=== PATIENT | male | born 1935 | race Caucasian/White ===

== ENCOUNTER 2017-03-05 15:00 | Inpatient (IN) | payer MEDICARE, BC ==
[~2017-03-05] VITALS: Ht 190.5 cm; Wt 77.7 kg
--- NOTE | ~2017-03-05 | CON ---
PATIENT'S NAME: TAL METZGER [facility] AGE: 81 Y [address] ROOM: [id number] [place], [place] [address] LOCATION: G3N ADMIT DATE: 03/05/2017 Consultation DISCHARGE DATE: FAMILY PHYSICIAN: Jose Abdullahi MD ATTENDING PHYSICIAN: BASSEM STEEN REFERRING PHYSICIAN: Devora MACEDO CHIEF COMPLAINT: Posterior neck pain, status post fall. HISTORY OF PRESENT ILLNESS: This is an 81-year-old male who suffered a mechanical fall after accidentally tripped while he was walking on the sidewalk on the day and he fell landing his left hand and also right head on the ground. He denies any loss of consciousness. He said it was purely a mechanical fall. He denies any chest pain, shortness of breath, palpitation, or presyncope prior to the fall. He initially went to [facility] at that time for medical attention and no imaging test was performed over there at that time, but only he got few stitches to fix his laceration and excoriate his skin laceration on the right forehead. When the patient went home few days after, the patient started to complain of posterior neck pain, which has been getting worse; therefore, the patient went back to [facility] today and imaging test on the CT cervical spine showed a nondisplaced type II odontoid fracture in the second cervical spine level. The patient was transferred here for further care. The patient was already seen by our neurosurgeon, Dr. Steen, has already put orders in, currently the patient will be managing with cervical collar and conservative care for now. We are consulted for medical management. Reviewing his medical management, the patient says that he was a former cigarette smoker, he quit about 40 years ago, but he used to smoke about 3-10 cigarettes per day for roughly 5-8 years, according to the patient. He states that occasionally he has this cough that is productive with yellow sputum on and off and he denies any worsening sputum production or any worsening cough for the last few days, but during my examination, the patient was coughing frequently. The patient denies any chest pain, any shortness of breath, or any fever or chills. But over here today, on the day of my evaluation, the patient was found to have a low-grade fever at 100.3. I reviewed the home medication. I noticed that he was prescribed cefdinir 600 mg p.o. daily for 10 days as well as prednisone 60 mg daily and then taper by 10 mg every other day until finish. However, the patient has not been taking this medication. The patient is somewhat a poor historian. While asking why he is on prednisone and antibiotics, he could not really tell me, but he said the prednisone was for his arthritis and he has been taking that on and off. He states he took a dose yesterday, but he is not really sure. He has no recollection why he was given antibiotics. When asked if he has pneumonia PATIENT'S NAME: TAL METZGER [facility] AGE: 81 Y [address] ROOM: [id number] [place], [place] [address] LOCATION: [facility] ADMIT DATE: 03/05/2017 Consultation DISCHARGE DATE: FAMILY PHYSICIAN: Jose Abdullahi MD ATTENDING PHYSICIAN: BASSEM STEEN before, he denies he has ever had pneumonia. He also denies any diagnosis of COPD also. He denies any dysuria, urinary frequency or urgency, diarrhea, abdominal pain, or any other complaints. He does complain of some poor appetite for the last few days, but he cannot really tell me if he has a decreased urine output or not. REVIEW OF SYSTEMS: As mentioned in the history of present illness. All other systems reviewed and negative except those mentioned in history of present illness. PAST MEDICAL HISTORY: According to the patient, the patient has a history of what sounds like a patent foramen ovale with prior history of ischemic stroke in the past without any neurological sequelae and this happened many years ago, osteoarthritis, he denies any other medical problems. ALLERGIES: THE PATIENT DENIES ANY ALLERGY TO ANY MEDICATION. HOME MEDICATIONS: 1. Tylenol 650-1300 mg p.o. every 4-6 hours p.r.n. for pain. 2. Aspirin 162 mg p.o. every morning. 3. Cefdinir 600 mg p.o. daily for 10 days, but the patient has not been taking this. 4. Glycopyrrolate/formoterol inhaler 2 puffs inhalation twice daily p.r.n. for shortness of breath. 5. Prednisone 60 mg 1 tablet daily then decrease by 10 mg every other day until finished. The patient did not take this medication either. Actually, the patient is not quite sure if he has been taking or not. 6. Promethazine with Codeine 6.25/10 mg in 10 mL p.o. every 4-6 hours p.r.n. for cough. SOCIAL HISTORY: The patient was a former cigarette smoker about 3-10 cigarettes per day for 5- 8 years. He quit about 40 years ago. He denies any alcohol or any illegal drug use. PAST SURGICAL HISTORY: Status post cholecystectomy, according to the patient. FAMILY HISTORY: Father and mother from old age, but he could not remember from what cause. He denies any premature coronary disease in the family. PHYSICAL EXAMINATION: PATIENT'S NAME: TAL METZGER [facility] AGE: 81 Y [address] ROOM: [address] [place] [id number] LOCATION: [facility] ADMIT DATE: 03/05/2017 Consultation DISCHARGE DATE: FAMILY PHYSICIAN: Jose Abdullahi MD ATTENDING PHYSICIAN: BASSEM STEEN VITAL SIGNS: At the time of my dictation, temperature 100.3, heart rate 90, respirations 16, blood pressure 144/79, and saturation 90% on room air. GENERAL APPEARANCE: Alert and oriented x3, in no acute distress. HEENT: Pupils equally round and reactive to light. Extraocular muscles intact. Anicteric sclerae. Nasal turbinates are normal bilaterally. Moist oral mucosa. NECK: He has a cervical collar in place. Cannot assess JVD. CARDIOVASCULAR: Regular rate and rhythm. Normal S1, S2. No murmur, no rubs, no gallops. RESPIRATORY: Clear to auscultation with decreased breath sounds diffusely. No obvious wheezing, rhonchi, rales, or crackles. ABDOMEN: Soft, nontender, nondistended, normal bowel sounds, no hepatosplenomegaly, and bowel sounds are present. No palpable mass. EXTREMITIES: He has a trace pitting edema, very mild, +1 in bilateral lower extremities anterior calves. No ulcer, no rash, no cyanosis on the extremities. SKIN: No ulcer, no rash, no cyanosis. MUSCULOSKELETAL: No joint pain. No muscle pain. Range of motion intact. Neck not examined given that he has a cervical collar in place. NEUROLOGICAL: Grossly nonfocal. LABORATORY DATA: White blood cell 15.1, hemoglobin 16.1, hematocrit 49.8, MCV 95, platelet 234, glucose 116, BUN 27, and creatinine 1.7. Sodium 141, potassium 4.3, chloride 105, CO2 30, calcium 9.1, total protein 6.8, albumin 3.5, AST 27, ALT 20, alkaline phosphatase 82, total bilirubin 1.1, anion gap 10.3, globulin 3.3, GFR 39, INR 1.05, PTT 29. Urinalysis 25 leukocyte, pending bacteria, pending white blood cells, and negative nitrite. IMAGING STUDIES: 1. Chest x-ray on admission was read as no evidence of acute cardiopulmonary process. 2. Cervical spine CT from the outside facility show type II C2 odontoid fracture nondisplaced. This is per the medical records. I do not have access to the official written report of the CT cervical spine. ASSESSMENT AND PLAN: 1. Regarding his cervical type II odontoid nondisplaced fracture, status post mechanical fall: Per Neurosurgery. We will have a cervical collar in place. For now, will be conservative care. Further plan per Neurosurgery team. Pain control per Neurosurgery team. 2. Regarding his low-grade fever and productive cough in the setting of mild chronic obstructive pulmonary disease exacerbation: We will put the patient on oxygen nasal cannula to keep the saturation above 90%. The patient has history of former cigarette smoking most likely perhaps PATIENT'S NAME: TAL METZGER [facility] AGE: 81 Y [address] ROOM: [place] [address] LOCATION: [facility] ADMIT DATE: 03/05/2017 Consultation DISCHARGE DATE: FAMILY PHYSICIAN: Jose Abdullahi MD ATTENDING PHYSICIAN: BASSEM STEEN the patient could carry a diagnosis of chronic obstructive pulmonary disease. He states that he chronically has cough and is productive on and off, but he denies any worsening cough recently. But during my examination, the patient has been coughing very frequently. I will get a sputum culture, Gram stain, check a urinalysis and also urine antigen for Legionella and pneumococcal and get a urine culture, and also get blood culture 2 sets. This is the workup for the fever. For now, I will focus on the lung even though x-ray looks clean, but the patient has been coughing very frequently on my examination, I am going to treat him for chronic obstructive pulmonary disease exacerbation; and for now, I will cover him with p.o. Levaquin. This is a part of the protocol for the chronic obstructive pulmonary disease exacerbation. This is a good medication for urinary tract infection and also good for the community- acquired pneumonia in the setting of a chronic obstructive pulmonary disease exacerbation. I will also check a lactic acid and procalcitonin to make sure he is not septic. He does have leukocytosis, this could be from the pain or could be from the infection in the setting of low-grade fever. I will give incentive spirometry to use 10 times per hour while awake and treat him with nebulization with Xopenex plus Atrovent q.6 h. while awake for 24 hours and then titrate by RT and also Xopenex q.2 h. p.r.n. by RT for shortness of breath or wheezing. For now, I will not do steroids because the lungs are clear. He was given antibiotics with cefdinir and also prednisone, but the patient has never been taking that, and he cannot really tell me why he was taking this medication or even prescribed for. He said the prednisone was for his osteoarthritis. He is not really sure if he actually took it or not. Seems to me, this is the regimen for chronic obstructive pulmonary disease management. For now, I will focus on the lungs. He could have viral bronchitis as well. I will be checking influenza nasal antigen swap, if it is positive for influenza, start him on the Tamiflu dosing per pharmacy for renally dosed. Further plan depends on clinical course. 3. Regarding his acute kidney disease: This is acute kidney injury or could be chronic kidney disease. We do not have any baseline to compare. Given that the patient does have decreased oral intake and he looks dry on examination, probably, this is acute kidney injury. In either case, I am going to hydrate him with intravenous fluids and then check renal panel again in the morning. The patient can urinate therefore I am not going to place a Corey for now. Strict in's and out's. 4. Regarding his prior history of stroke in the setting of patent foramen ovale, according to the patient: The patient currently is stable and is not having any stroke symptoms. No active issue. Just now, the patient is slightly tachycardic, heart rate in the 110, I will be getting an EKG to make sure this is sinus and not atrial fibrillation. If necessary, echo could be ordered if he has murmur to rule out bacterial endocarditis, but currently there is no murmur, and I will not order echo PATIENT'S NAME: TAL METZGER [facility] AGE: 81 Y [address] ROOM: [place] [address] LOCATION: [facility] ADMIT DATE: 03/05/2017 Consultation DISCHARGE DATE: FAMILY PHYSICIAN: Jose Abdullahi MD ATTENDING PHYSICIAN: BASSEM STEEN because it is not necessary at the moment. Unless blood culture comes back positive, then echo could be ordered. 5. Regarding his deep vein thrombosis prophylaxis: Per Orthopedic Surgery. He has a compression devices in place for now. Time spent on the day of consultation was 45 minutes including chart review, interviewing and examining the patient, addressing all the questions and concerns that the patient had, and going over the plan of care with the patient and nurses. Further plan depends on clinical course and medical provider who will be taking over the care on 03/06/17 at 8 AM when shift changes. PRAVEENA GREEN MD CC/beel /[id number] d: 03/06/17 0154 t: 03/24/17 2323, CONSULTATION REPORT
--- NOTE | ~2017-03-05 | HP ---
PATIENT'S NAME: TAL METZGER [facility] AGE: 81 Y [address] ROOM: [place] [address] LOCATION: [facility] ADMIT DATE: 03/05/2017 History & Physical DISCHARGE DATE: FAMILY PHYSICIAN: Jose Abdullahi MD ATTENDING PHYSICIAN: BASSEM CRUZ DATE OF SERVICE: 03/05/2017 CHIEF COMPLAINT: Posterior neck pain, type 2 odontoid fracture, COPD exacerbation, pneumonia. HISTORY OF PRESENT ILLNESS: The patient is an 81-year-old male patient who had a fall from a standing position about 10 days ago and was assessed at [facility] regarding posterior neck pain. He was investigated with a cervical spine CT scan, and that revealed evidence of type 2 odontoid fracture. I was contacted and personally reviewed the patient's images. I recommended transferring the patient over for further investigations. I met the patient in the presence of his daughter on the linder. They confirmed the history. There was no loss of consciousness after the fall. The patient was seen in the clinic on the day of fall, lacerations were repaired, and the patient was discharged home. The patient then continued to have posterior neck pain, especially in the suboccipital region. He had no weakness/numbness in his extremities. At the time of the encounter, the patient reported mild- to-moderate neck pain. He denied numbness in his hands. He denied weakness in his hands. He denied chest pain, abdominal pain, or back pain. PAST MEDICAL AND SURGICAL HISTORY: The patient has COPD, osteoarthritis, and history of ischemic stroke. REVIEW OF SYSTEMS: All points review of systems were asked about. Pertinent positives were mentioned in the HPI. ALLERGIES: NO KNOWN DRUG ALLERGIES. MEDICATIONS: Listed in the patient's chart. SOCIAL HISTORY: The patient is an ex-smoker, he quit 40 years ago. No alcohol consumption. FAMILY HISTORY: PATIENT'S NAME: [facility] AGE: 81 Y [address] ROOM: [place] [address] LOCATION: [facility] ADMIT DATE: 03/05/2017 History & Physical DISCHARGE DATE: FAMILY PHYSICIAN: Jose Abdullahi MD ATTENDING PHYSICIAN: BASSEM CRUZ Noncontributory to the patient's presentation. PHYSICAL EXAMINATION: GENERAL: The patient was cooperative and pleasant during the examination. VITAL SIGNS: The patient had a low-grade fever. His blood pressure was stable. HEAD: I noticed abrasions on the forehead from the fall. The pupils were equal and reactive. The sclerae examination was normal. NECK: It was immobilized in rigid collar. No palpable masses. Neck range of motion was not tested. RESPIRATORY: The patient was in [id number] respiratory distress. He had multiple episodes of coughing during the encounter. CARDIOVASCULAR: He had palpable pulses in the upper extremities. MUSCULOSKELETAL: He had painful range of motion of the right shoulder. GAIT: Not done. BACK: Not done. CHEST: No tenderness to palpation. ABDOMEN: It was soft and nontender. MOUTH AND THROAT: No mucosal lesions. NEUROLOGIC: He was alert and oriented. Cranial nerves examination was grossly normal. Motor and sensory examination in the upper and lower extremities did not show any focal weakness. David sign was negative. INVESTIGATIONS: Cervical spine CT scan done on March 05, 2017, which I personally reviewed. It showed evidence of nondisplaced type 2 odontoid fracture. It showed evidence of significant cervicothoracic kyphosis. It also showed evidence of multilevel degenerative joint disease and facet arthropathy. The spinal canal is patent at all levels. IMPRESSION: This 81-year-old male patient has type 2 odontoid fracture from a fall that he had about 10 days ago. The patient is neurologically intact. The patient also has pneumonia and chronic obstructive pulmonary disease exacerbation. The patient's neurological examination is reassuring. PLAN: 1. Admission to the hospital. 2. Hospitalist consultation for medical management of COPD exacerbation and pneumonia. 3. [place] collar immobilization of the neck. 4. Upright cervical spine x-ray. 5. Physiotherapy, occupational therapy to mobilize. I reviewed the imaging with the patient and his family. I clearly indicated that the CT scan did show evidence of type 2 odontoid fracture. I then discussed the treatment options. Given that the fracture is nondisplaced, I PATIENT'S NAME: TAL METZGER [facility] AGE: 81 Y [address] ROOM: [address] [address] LOCATION: [facility] ADMIT DATE: 03/05/2017 History & Physical DISCHARGE DATE: FAMILY PHYSICIAN: Jose Abdullahi MD ATTENDING PHYSICIAN: BASSEM CRUZ recommended nonoperative treatment for now. I recommended [place] collar immobilization. The patient will be mobilized by physiotherapy and occupational therapy, and upright cervical spine x-ray will be obtained later. If the x-ray does not show any displacement or change in the angulation at C2, then the patient will be discharged home and will be followed in the office. I also discussed the surgical option. I clearly indicated that given the patient's comorbidities and age, surgery is associated with high risk of morbidity and even mortality. The patient and his family asked appropriate questions, and those were answered to their satisfaction. It was a pleasure taking care of this patient, and thank you for having us involved. BASSEM CRUZ MD AB/modl /[id number] CC: Jose Abdullahi MD D: [id number] T: [id number] HISTORY & PHYSICAL
--- NOTE | ~2017-03-05 | DS ---
PATIENT'S NAME: TAL METZGER [facility] AGE: 81 Y [address] ROOM: [address] [place], [place] [address] LOCATION: G3N ADMIT DATE: 03/05/2017 Discharge Summary DISCHARGE DATE: 03/07/2017 FAMILY PHYSICIAN: Jose Abdullahi MD ATTENDING PHYSICIAN: Ibrahima Steen ADMISSION MAIN DIAGNOSES: 1. Type 2 odontoid fracture. 2. Chronic obstructive pulmonary disease exacerbation, pneumonia. DISCHARGE MAIN DIAGNOSES: 1. Type 2 odontoid fracture. 2. Chronic obstructive pulmonary disease exacerbation, pneumonia. PROCEDURES DURING ADMISSION: None. COMPLICATIONS: None. DISCHARGE INSTRUCTIONS AND FOLLOWUP APPOINTMENTS: 1. Family physician on March 10, 2017, for COPD assessment. 2. Myself on March 13, 2017, with upright cervical spine x-ray. 3. [place] collar 01/06. 4. No heavy lifting, no neck twisting. 5. Call my office for any concerns. MEDICATIONS ON DISCHARGE: 1. Diltiazem 30 mg p.o. b.i.d. 2. Levaquin 750 mg p.o. every 2 days. 3. Prednisone 20 mg p.o. once daily for 3 days, then 10 mg p.o. once daily for 3 days, then 5 mg p.o. once daily for 3 days, then stop. 4. Promethazine and codeine 6.25/10 mg, 10 mL p.o. every 4 to 6 hours p.r.n. 5. Glycopyrrolate/formoterol inhaler 2 puffs twice daily p.r.n. 6. Tylenol 325 to 650 mg p.o. every 4 hours p.r.n. 7. Aspirin 162 mg p.o. once daily. HOSPITAL COURSE: The above patient was admitted to the hospital with main diagnosis of type 2 odontoid fracture and COPD exacerbation associated with pneumonia. The patient had a fall from a standing position about 10 days prior to the admission. He was complaining of moderate posterior neck pain. He was assessed on the day of admission at [facility] and a noncontrast CT of the head showed evidence of nondisplaced type 2 odontoid fracture. He was transferred over for further investigations. The patient was neurologically intact. The fracture was treated conservatively in [place] collar. Standing cervical spine x-ray did not show any displacement. The patient's neck pain was fairly controlled. He was seen by the hospitalist for PATIENT'S NAME: TAL METZGER [facility] AGE: 81 Y [address] ROOM: [address] [place], [place] [address] LOCATION: [facility] ADMIT DATE: 03/05/2017 Discharge Summary DISCHARGE DATE: 03/07/2017 FAMILY PHYSICIAN: Jose Abdullahi MD ATTENDING PHYSICIAN: Ibrahima Steen COPD exacerbation, management, and pneumonia. His medications were adjusted and he was continued on prednisone and started on Levaquin. His COPD significantly improved. On the day of discharge, he was examined. He continued to do well. He had no pain. He was neurologically intact. His respiratory status was better. I discussed the discharge instructions with him and based on that, the patient was sent home. MD GIGI HENDRICKS/modl /[id number] CC: Jose Abdullahi MD d: 03/08/17 0256 t: 03/08/17 0849, DISCHARGE SUMMARY
--- NOTE | 2017-03-05 17:19 | NUR ---
pt admitted for odontoid fracture. fell on thursday and is having a lot of neck pain. sent here from [facility] [place] to be evauated by dr barkley.
[2017-03-05] MEDS ORDERED: TYLENOL ARTHRI650 MG PO (17:33)
[2017-03-05] MEDS ORDERED: BEVESPI AEROS10.7 GM INH (17:35)
[2017-03-05] MEDS ORDERED: PROMETH-CODEIN 65 ML PO (17:36)
[2017-03-05] MEDS ORDERED: ASPIRIN LO-DOSE81 MG PO (17:36)
[2017-03-05] MEDS ORDERED: OMNICEF 300MG300 MG PO (17:37)
[2017-03-05] MEDS ORDERED: DELTASONE20 MG PO (17:39)
[2017-03-05 18:26] LABS: BASOPHIL # 0.1 K/uL (0.0-0.2); BASOPHIL % 0.3 %; EOSINOPHIL # 0.3 K/uL (0.0-0.5); EOSINOPHIL % 1.9 %; HEMATOCRIT 49.8 % (33.0-50.0); HEMOGLOBIN 16.1 g/dL (11.0-16.0); IMMATURE GRANULOCYTE # 0.1 K/uL (0.0-0.3); IMMATURE GRANULOCYTE % 0.5 %; LYMPHOCYTE # 1.8 K/uL (0.8-4.0); LYMPHOCYTE % 11.9 %; MCH 30.7 pg (27.0-34.0); MCHC 32.3 gm/dL (32.0-36.5); MONOCYTE # 1.5 K/uL (0.0-1.0); MONOCYTE % 9.8 %; MPV 10.9 fl (9.4-12.4); NEUTROPHIL # (ANC) 11.4 K/uL (1.4-9.0); NEUTROPHIL % 75.6 %; NRBC % 0 /100WBC (0-0.00); PLATELET COUNT 224 K/uL (150-450); RBC 5.24 M/uL (3.50-5.50); RDW-CV 14.1 % (11.9-14.6); WBC 15.1 K/uL (4.0-11.0)
[2017-03-05 18:34] LABS: INR - (THERAPEUTIC) 1.05 (0.92-1.07); PTT 29 SECONDS (25-32)
[2017-03-05 18:42] LABS: ALBUMIN 3.5 gm/dL (3.5-5.0); ANION GAP 10.3 (10.0-19.0); CALCIUM 9.1 mg/dL (8.5-10.5); CREATININE 1.7 mg/dL (0.6-1.3); POTASSIUM 4.3 mMol/L (3.7-5.1); TOTAL BILIRUBIN 1.1 mg/dL (0.0-1.5); TOTAL PROTEIN 6.8 g/dL (6.0-8.4)
[2017-03-06 00:01] LABS: BILIRUBIN URINE NEGATIVE (NEGATIVE); BLOOD URINE NEGATIVE /UL (NEGATIVE); COLOR URINE AMBER (YELLOW); GLUCOSE URINE NEGATIVE (NEGATIVE); KETONE URINE 5 mg/dL (NEGATIVE); LEUKOCYTES URINE 25 /UL (NEGATIVE); NITRITE URINE NEGATIVE (NEGATIVE); PROTEIN URINE NEGATIVE (NEGATIVE); TURBIDITY URINE CLEAR (CLEAR); UROBILINOGEN URINE 1 mg/dL (NORMAL)
[2017-03-06 00:12] LABS: BACTERIA URINE FEW (NEGATIVE); EPITHELIAL URINE NEGATIVE #/HPF (NEGATIVE); RBC URINE NEGATIVE #/HPF (NEGATIVE); RENAL EPITH URINE 0-2 #/HPF (NEGATIVE)
--- NOTE | 2017-03-06 07:40 | NUR ---
Significant Event: [place] collar neck brace on at all times. CSM WNL. 1 assist with transfer. Voids small amounts at a time. Temperature at the beginning of the shift was 100.3 and came down as low as 99.4. Sent sputum culture. Negative for influenza. Blood cultures x2. On room air. Had a constant cough. Follow up:
[2017-03-06 08:09] LABS: BASOPHIL # 0.1 K/uL (0.0-0.2); BASOPHIL % 0.3 %; EOSINOPHIL # 0.1 K/uL (0.0-0.5); EOSINOPHIL % 0.5 %; HEMATOCRIT 50.4 % (33.0-50.0); HEMOGLOBIN 16.5 g/dL (11.0-16.0); IMMATURE GRANULOCYTE # 0.2 K/uL (0.0-0.3); IMMATURE GRANULOCYTE % 0.6 %; LYMPHOCYTE # 2.1 K/uL (0.8-4.0); LYMPHOCYTE % 8.5 %; MCH 30.8 pg (27.0-34.0); MCHC 32.7 gm/dL (32.0-36.5); MPV 10.6 fl (9.4-12.4); NEUTROPHIL % 82.1 %; NRBC % 0 /100WBC (0-0.00); PLATELET COUNT 222 K/uL (150-450); RBC 5.36 M/uL (3.50-5.50); RDW-CV 14.1 % (11.9-14.6)
[2017-03-06 08:11] LABS: WBC 24.4 K/uL (4.0-11.0)
--- NOTE | 2017-03-06 08:25 | NUR ---
Introduced self/role to patient. Lives in [place]. He denied any needs for DME. States his daughter Angy will be around to assist him. He had no concerns about going home. Daughter will be here around noon today. Wrote my name on his marker board, will continue to follow.
[2017-03-06 08:27] LABS: ANION GAP 13.1 (10.0-19.0); CREATININE 1.6 mg/dL (0.6-1.3); POTASSIUM 4.1 mMol/L (3.7-5.1)
--- NOTE | 2017-03-06 17:01 | NUR ---
Significant Event: Pt is a/o. cooperative with cares. Has amb in meza with SBA. Voids in BR and urinal. [place] collar on @ all times. Has occas. harsh NPC cough. Room air sats run 91-93%. Needs assist with ordering meals. Poss discharge tomorrow. Temp max 99.8 CSM WNL. Follow up:
--- NOTE | 2017-03-07 05:01 | NUR ---
Significant Event: A/O X 3. VESTA COLLAR ON AT ALL TIMES. HAS SAT UP IN RECLINER CHAIR, AMBULATED TO BR VOIDS AND ALSO USES URINAL. HAS OCCASIONAL HARSH COUGH, NON-PRODUCTIVE. SATS ROOMAIR AT 91%-93%. NEEDS ASSISTANCE WITH ORDERING MEALS. TEMP MAX 99.8. AT 2300 TEMP 98.7 AT 0300 98.0. POSSIBLE HOME TODAY. ENCOURGE INCENTIVE USAGE. Follow up:
[2017-03-07 05:25] LABS: BASOPHIL % 0.2 %; HEMATOCRIT 46.6 % (33.0-50.0); HEMOGLOBIN 15.5 g/dL (11.0-16.0); IMMATURE GRANULOCYTE # 0.2 K/uL (0.0-0.3); IMMATURE GRANULOCYTE % 0.7 %; LYMPHOCYTE # 0.9 K/uL (0.8-4.0); LYMPHOCYTE % 4.3 %; MCH 30.9 pg (27.0-34.0); MCHC 33.3 gm/dL (32.0-36.5); MCV 92.8 fl (83.0-98.0); MONOCYTE # 0.4 K/uL (0.0-1.0); NEUTROPHIL # (ANC) 18.8 K/uL (1.4-9.0); NEUTROPHIL % 92.8 %; NRBC % 0 /100WBC (0-0.00); PLATELET COUNT 250 K/uL (150-450); RBC 5.02 M/uL (3.50-5.50)
[2017-03-07 05:27] LABS: WBC 20.2 K/uL (4.0-11.0)
[2017-03-07 05:34] LABS: ANION GAP 12.2 (10.0-19.0); CALCIUM 9.4 mg/dL (8.5-10.5); CREATININE 1.7 mg/dL (0.6-1.3); POTASSIUM 4.2 mMol/L (3.7-5.1)
[2017-03-07] MEDS ORDERED: CARDIZEM30 MG PO (11:56)
[2017-03-07] MEDS ORDERED: LEVAQUIN 750 M750 MG PO (11:58)
[2017-03-07] MEDS ORDERED: DELTASONE10 MG PO ×2 (12:03→12:05)
--- NOTE | 2017-03-07 14:57 | NUR ---
AOx3. VSS. CSM WNL. Collar on at all times. Patient refused pain medication. Dressing C/D/I. Patient and son had no questions or concerns about discharge intructions. Patient was wheeled to front lobby for discharge home with family member to [place] at 1450.
== END 2017-03-07 14:50 | disposition disaster alternative care site (69) | DRG 551 ==
LOC: G3N 16:13
PROVIDERS: Internal Medicine; ADMIT Neurological Surgery
DX: S12.112A Nondisplaced Type II dens fracture, initial encounter for closed fracture (principal); J18.9 Pneumonia, unspecified organism; N17.9 Acute kidney failure, unspecified; J44.1 Chronic obstructive pulmonary disease with (acute) exacerbation; I12.9 Hypertensive chronic kidney disease with stage 1 through stage 4 chronic kidney disease, or unspecified chronic kidney disease; N18.9 Chronic kidney disease, unspecified; M19.90 Unspecified osteoarthritis, unspecified site; Z86.73 Personal history of transient ischemic attack (TIA), and cerebral infarction without residual deficits; Z87.891 Personal history of nicotine dependence; W18.30XA Fall on same level, unspecified, initial encounter
CPT/HCPCS: J1956; J2920; J7030; J7512; J7612